=== PATIENT | male | born 2000 | race Caucasian/White ===

== ENCOUNTER 2024-02-27 23:16 | Emergency (ER) | payer SELFPAY ==
[2024-02-27] MEDS ORDERED: predniSONE 20 MG TAB ONE (23:49)
[2024-02-27] MEDS ORDERED: Albuterol 2.5 MG (3 mL) NEB ONE (23:59)
[2024-02-27] MEDS ORDERED: Ipratropium/Albuterol 3 ML NEB ONE (23:59)
== END 2024-02-28 01:13 | disposition home or self-care (01) ==
LOC: ERS 23:16
DX: J45.901 Unspecified asthma with (acute) exacerbation (principal); F17.290 Nicotine dependence, other tobacco product, uncomplicated
CPT/HCPCS: 94644; J7512; J7611; J7620